=== PATIENT | female | born 1930 | race Caucasian/White ===

== ENCOUNTER 2017-10-27 06:44 | Emergency (ER) | payer OTHER ==
[~2017-10-27] VITALS: Ht 149.9 cm; Wt 43.1 kg
[2017-10-27 06:49] VITALS: Ht 149.9 cm; Wt 43.1 kg
[2017-10-27 07:19] LABS: BASOPHIL % 1.1 % (0-2); PLATELET COUNT 227 x10^3mcL (130-400); RED CELL DISTRIBUTION WIDTH 14.9 % (11.5-14.5)
[2017-10-27 07:29] LABS: CARBON DIOXIDE 23.9 mmol/L (21-32); CHLORIDE SERUM 99 mmol/L (98-107); CREATININE SERUM 0.9 mg/dL (0.6-1.0); GLUCOSE SERUM 143 mg/dL (74-106); POTASSIUM SERUM 3.8 mmol/L (3.5-5.1); SODIUM SERUM 136 mmol/L (136-145)
[2017-10-27 07:33] LABS: ALBUMIN 3.9 g/dL (3.4-5.0); ALKALINE PHOSPHATASE 67 U/L (46-116); ALT/SGPT 19 U/L (14-59); AST/SGOT 19 U/L (15-37); BILIRUBIN TOTAL 0.52 mg/dL (0.20-1.00); PHOSPHOROUS 3.3 mg/dL (2.5-4.9); TOTAL PROTEIN, SERUM 7.8 g/dL (6.4-8.2); URIC ACID 3.7 mg/dL (2.6-6.0)
[2017-10-27 07:36] LABS: CHOLESTEROL 221 mg/dL (<200); HDL CHOLESTEROL 111 mg/dL (40-60)
[2017-10-27 09:27] VITALS: BP 141/75
== END 2017-10-27 09:27 | disposition home or self-care (01) ==
LOC: ED 06:44
PROVIDERS: Emergency Medicine
DX: F41.9 Anxiety disorder, unspecified (principal); R11.0 Nausea
CPT/HCPCS: 83880; J2060; J2405; Q0092

== ENCOUNTER 2017-12-06 09:56 | Emergency (ER) | payer OTHER ==
[~2017-12-06] VITALS: Ht 147.3 cm; Wt 34.0 kg
[2017-12-06 10:00] VITALS: Ht 147.3 cm; Wt 34.0 kg
[2017-12-06 11:14] VITALS: BP 125/68
== END 2017-12-06 11:15 | disposition home or self-care (01) ==
LOC: ED 09:56
DX: K59.00 Constipation, unspecified (principal)